=== PATIENT | female | born 1965 | race Caucasian/White ===

== ENCOUNTER 2018-02-13 14:17 | Emergency (ER) | payer OTHER ==
[~2018-02-13] VITALS: Ht 165.1 cm; Wt 66.7 kg
[~2018-02-13 14:17] MED LIST: ADVIL200 MG PO; NORCO 5/3251 TABLET PO; PROTONIX40 MG PO; VIGAMOX 0.60 DROP/3 BOTH EYES
[2018-02-13 16:00] LABS: HEMATOCRIT 40.5 % (36.0-46.0); HEMOGLOBIN 13.7 G/DL (11.9-15.5); MCH 30.7 PG (29.0-34.0); MCHC 33.8 G/DL (30.0-36.0); MCV 90.8 FL (83-99); PLATELET COUNT 300 K/uL (156-360); RBC DIS.WIDTH-SD 42.7 % (39-53); RED BLOOD COUNT 4.46 M/uL (3.80-5.20); WHITE BLOOD COUNT 10.8 K/uL (4.1-10.2)
[2018-02-13 16:12] LABS: ALBUMIN 4.3 g/dL (3.2-4.8)
[2018-02-13 16:13] LABS: CHLORIDE 103 mEq/L (99-109); POTASSIUM 4.3 mEq/L (3.7-5.4); SODIUM 140 mEq/L (136-147)
[2018-02-13 16:15] LABS: GLUCOSE 111 mg/dL (70-99); TOTAL PROTEIN 7.6 g/dL (6.4-8.3)
[2018-02-13 16:17] LABS: TOTAL BILIRUBIN 0.3 mg/dL (0.0-1.0)
[2018-02-13 16:18] LABS: ALKALINE PHOSPHATASE 100 IU/L (3-129)
[2018-02-13 16:19] LABS: CREATININE 0.9 mg/dL (0.6-1.3); GFR ESTIMATE (CALCULATED) > 59 mL/min/
[2018-02-13 16:20] LABS: AST (GOT) 23 IU/L (2-34); UREA NITROGEN (BUN) 16 mg/dL (9-23)
[2018-02-13 16:21] LABS: ALT (GPT) 22 IU/L (3-49); TROP-I INTERPRETATION NEGATIVE; TROPONIN-I 0.01 ng/mL (0.0-0.30)
[2018-02-13 18:04] LABS: APPEARANCE CLEAR ((CLEAR)); BILIRUBIN NEGATIVE; BLOOD NEGATIVE; COLOR STRAW ((YELLOW)); GLUCOSE (STRIP) NEGATIVE; KETONES NEGATIVE; LEUKOCYTES SMALL; NITRITE NEGATIVE; PROTEIN (STRIP) NEGATIVE; SPECIFIC GRAVITY 1.003 (1.000-1.030); UROBILINOGEN 0.2 MG/DL (0.2-1.0)
[2018-02-13 18:09] LABS: BACTERIA RARE /HPF; EPITHELIAL CELLS RARE /HPF; MUCUS NONE SEEN /LPF; RED BLOOD CELLS 0-5 /HPF (0-5); WHITE BLOOD CELLS 0-5 /HPF (0-5)
[2018-02-13] MEDS ORDERED: CARAFATE1 GM PO (18:47)
[2018-02-13] MEDS ORDERED: PEPCID20 MG PO (18:47)
[2018-02-13 19:15] VITALS: BP 124/72
== END 2018-02-13 19:23 | disposition home or self-care (01) ==
LOC: EME 14:17
PROVIDERS: Physician Assistant
DX: R10.13 Epigastric pain (principal); R42 Dizziness and giddiness; Z90.49 Acquired absence of other specified parts of digestive tract; Z90.711 Acquired absence of uterus with remaining cervical stump; Z88.5 Allergy status to narcotic agent; Z88.0 Allergy status to penicillin; Z88.6 Allergy status to analgesic agent
CPT/HCPCS: 71045; 80053; 81003; 84484; 85027; 93005; 99281; 99285; J7030

== ENCOUNTER → 2018-02-20 | Outpatient (CLI) | payer OTHER ==
[~2018-02-20] VITALS: Ht 165.1 cm; Wt 93.9 kg
[~2018-02-20] MED LIST changes: +CARAFATE1 GM PO; +EXCEDRIN MIGRA1 EAC3 PO; +NEXIUM40 MG PO; +PEPCID20 MG PO
== END | disposition home or self-care (01) ==
LOC: AMB 07:47
PROC: 0DB68ZX Excision of Stomach, Via Natural or Artificial Opening Endoscopic, Diagnostic (ICD-10-PCS; principal; 2018-02-20)
DX: K29.70 Gastritis, unspecified, without bleeding (principal); K44.9 Diaphragmatic hernia without obstruction or gangrene; Z80.0 Family history of malignant neoplasm of digestive organs; Z86.19 Personal history of other infectious and parasitic diseases; Z87.11 Personal history of peptic ulcer disease; Z77.22 Contact with and (suspected) exposure to environmental tobacco smoke (acute) (chronic); Z90.49 Acquired absence of other specified parts of digestive tract; Z90.710 Acquired absence of both cervix and uterus; Z88.0 Allergy status to penicillin; Z88.5 Allergy status to narcotic agent; Z88.8 Allergy status to other drugs, medicaments and biological substances
CPT/HCPCS: 88305; 88342 TC; J1100; J2250; J2405; J7643